=== PATIENT | female | born 2000 | race Caucasian/White ===

== ENCOUNTER 2025-08-12 17:18 | Emergency (ER) | payer OTHER ==
[~2025-08-12] VITALS: Ht 160 cm; Wt 68.2 kg
[2025-08-12 17:22] VITALS: TEMP 97.9
[2025-08-12 17:45] LABS: GLUCOMETER DEV NAME(LOC) ER.7; GLUCOSE,POINT OF CARE 107 MG/DL (70-110)
[2025-08-12 20:17] VITALS: BP 122/75; PULSE 95; RESP 18; O2SAT 98
[2025-08-12] MEDS ORDERED: NYST30CR9 TP (21:30)
== END 2025-08-12 21:36 | disposition home or self-care (01) ==
LOC: EMS 17:18
DX: L30.4 Erythema intertrigo (principal); F17.210 Nicotine dependence, cigarettes, uncomplicated; Z98.890 Other specified postprocedural states; Z90.49 Acquired absence of other specified parts of digestive tract; Z98.82 Breast implant status
CPT/HCPCS: 82962; 99283